=== PATIENT | male | born 1985 | race Caucasian/White ===

== ENCOUNTER 2018-09-20 21:52 | Emergency (ER) | payer OTHER ==
[~2018-09-20] VITALS: Ht 175.3 cm; Wt 121.0 kg
[~2018-09-20 21:52] MED LIST: CIPR500T4 PO; HYDR-3980 PO; IBUP800T48 PO; TAMS-14 PO
[2018-09-20 22:01] VITALS: Ht 175.3 cm; Wt 121.0 kg
[2018-09-20] MEDS ORDERED: LORA1TAB PO (23:34)
--- NOTE | 2018-09-20 23:36 | ERD ---
ER Documentation Chief Complaint Chief Complaint HEART PALPATIONS WITH REPORTED HX OF ANXIETY X 2 HRS HPI 33-year-old male with history of anxiety presents stating he had an anxiety attack earlier today at around 6 PM after getting into an argument with his . He felt like his heart was racing. He feels better now but wanted to come to get checked out to make sure that his heart is okay. He has no cardiac past medical history. ROS All systems reviewed and are negative except as per history of present illness. Medications Home Meds Active Scripts Lorazepam* (Lorazepam*) 1 Mg Tablet, 1 MG PO Q8, #10 TAB Prov:GERDA SHAH PA-C 09/20/18 Ciprofloxacin Hcl* (Ciprofloxacin Hcl*) 500 Mg Tablet, 500 MG PO BID for 7 Days, TAB Prov:DEVIN ROBLES PA-C 05/28/16 Tamsulosin Hcl* (Flomax*) 0.4 Mg Cap.er.24h, 0.4 MG PO BID, #30 CAP Prov:DEVIN ROBLES PA-C 05/28/16 Ibuprofen* (Motrin*) 800 Mg Tab, 800 MG PO Q6, #30 TAB Prov:DEVIN ROBLES PA-C 05/28/16 Hydrocodone/Acetaminophen ([place] 10-325 Tablet) 1 Each Tablet, 1 TAB PO Q6H PRN for PAIN, #12 TAB Prov:DEVIN ROBLES PA-C 05/28/16 Allergies Allergies: Coded Allergies: No Known Allergy (Unverified , 05/28/16) PMhx/Soc Medical and Surgical Hx: pt denies Surgical Hx History of Surgery: No Anesthesia Reaction: No Hx Neurological Disorder: No Hx Respiratory Disorders: No Hx Cardiac Disorders: No Hx Psychiatric Problems: Yes (anxiety) Hx Miscellaneous Medical Probl: Yes (kidney stones) Hx Alcohol Use: Yes (socially) Hx Substance Use: No Hx Tobacco Use: Yes Smoking Status: Current every day smoker FmHx Family History: No diabetes Physical Exam Vitals Vital Signs Date Temp Pulse Resp B/P (MAP) Pulse Ox O2 O2 Flow FiO2 Time Delivery Rate 09/20/18 97.9 110 20 139/91 97 22:01 (107) Physical Exam Const: No acute distress Head: Atraumatic Eyes: Normal Conjunctiva ENT: Normal External Ears, Nose and Mouth. Neck: Full range of motion. No meningismus. Resp: Clear to auscultation bilaterally Cardio: Regular rate and rhythm, no murmurs Procedures/MDM 33-year-old male is here with anxiety attack. His EKG has no evidence of ST elevation or acute ischemic changes. It is normal sinus rhythm. He was given a dose of Ativan here and a prescription for a small amount of Ativan. Patient counseled regarding my diagnostic impression and care plan. Prior to discharge all questions answered. Pt agrees with treatment plan and understands strict return precautions. Pt is instructed to follow up with primary care provider within 24-48 hours. Precautionary instructions provided including instructions to return to the ER if not improving or for any worsening or changing symptoms or concerns. Departure Diagnosis: Primary Impression: Anxiety Condition: Stable Patient Instructions: Anxiety Reaction Additional Instructions: Call your primary care doctor TOMORROW for an appointment during the next 1-2 days.See the doctor sooner or return here if your condition worsens before your appointment time. GERDA SHAH PA-C Sep 20, 2018 23:36
[2018-09-20 23:50] VITALS: BP 133/78; PULSE 71; RESP 20
[2018-09-21] MEDS ORDERED: LORAZEPAM 1 MG TAB PO ONE
== END 2018-09-20 23:55 | disposition home or self-care (01) ==
LOC: FTE 21:52
DX: F41.9 Anxiety disorder, unspecified (principal); F17.210 Nicotine dependence, cigarettes, uncomplicated
CPT/HCPCS: Z7502; Z7610; 99283